=== PATIENT | female | born 1990 | race Asian ===

== ENCOUNTER → 2019-10-07 | Outpatient (CLI) | payer SELFPAY ==
--- NOTE | 2019-10-07 13:34 | US ---
EXAMINATION TYPE: US OB >= 14 wk fetus DATE OF EXAM: 10/07/2019 COMPARISON: None CLINICAL HISTORY: O36.63X0 Large for dates TECHNIQUE: Transabdominal (TA) GESTATIONAL AGE / DATING Physician Established: (35 weeks/1 days) EDC: 11/10/19 Dates by LMP: LMP unknown Dates by First Scan: (35 weeks/1 days) EDC: 11/10/19 Dates by Current Scan: (35 weeks/1 days) EDC: 11/10/19 SURVEY IUP: Single PLACENTA: Fundal PREVIA: No Previa BILLY: 13.2 cm CERVICAL LENGTH (transabdominal: norm > 3.0cm): 3.6 cm BIOMETRY PRESENTATION: vertex BPD: 8.6 cm 34 weeks / 5 days HC: 30.9 cm 34 weeks / 4 days AC: 33.0 cm 37 weeks / 0 days FL: 7.0 cm 36 weeks / 0 days ESTIMATED WEIGHT IN GRAMS: 2871 grams ESTIMATED WEIGHT IN LBS/OZ: 6 lbs. 5 oz. WEIGHT PERCENTAGE BASED ON ESTABLISHED DATES: 76% HC/AC: 0.9 FL/AC: 21.0 HEART RATE: 141 bpm RHYTHM: Normal MATERNAL WALL MEASUREMENT: 3.5 cm from skin to anterior uterine wall (if exam limited due to body hab itus). ANATOMY SEEN (within normal limits): Midline Falx Cavus Septi Pellucidi Four Chamber Heart Stomach Nose / Lips Diaphragm Bladder Other anatomy not seen due to increased size and shadowing from bone. IMPRESSION: Single viable uterine . See above.
== END | disposition home or self-care (01) ==
LOC: RADUSWWP 11:01
PROVIDERS: ATTEND Obstetrics & Gynecology
DX: O36.63X0 Maternal care for excessive fetal growth, third trimester, not applicable or unspecified (principal); Z3A.35 35 weeks gestation of pregnancy
CPT/HCPCS: 76805

== ENCOUNTER 2019-10-28 11:09 | Outpatient (CLI) | payer SELFPAY ==
[2019-10-28 13:17] VITALS: BP 138/86; PULSE 97; RESP 20; TEMP 98.2
--- NOTE | 2019-11-01 12:22 | P.MSEPDOC ---
Presenting Problems - Arrival Data Date of Arrival on Unit: 10/28/19 Time of Arrival on Unit: 11:20 Mode of Transport: Ambulatory - Complaint OB-Reason for Admission/Chief Complaint: Other Medical History - Information : 2 Para: 1 Term: 1 : 0 Abortions: Spontaneous or Elective: 0 Number of Living Children: 1 - Gestational Age Gestational Age by MAKR (wks/days): 38 Weeks and 1 Days - History Complications: Prior Comment: pt states shes going to with this Review of Systems - Review of Systems Constitutional: No problems Breast: No problems ENT: No problems Cardiovascular: No problems Respiratory: No problems Gastrointestinal: No problems Genitourinary: No problems Musculoskeletal: No problems Neurological: No problems Skin: No problems Vital Signs - Temperature Temperature: 98.2 F Temperature Source: Oral - Pulse Right Brachial Pulse Rate: 97 Pulse Assessment Method: Automatic Cuff - Respirations Respiratory Rate: 20 Oxygen Delivery Method: Room Air O2 Sat by Pulse Oximetry: 98 - Blood Pressure Right Arm Blood Pressure: 138/86 Blood Pressure Mean: 103 Blood Pressure Source: Automatic Cuff Medical Screen Scoring (Pre) - Cervical Exam Dilation: 1-3 cm = 1 Membranes: Intact - Uterine Contractions Frequency: > 5 minutes apart = 1 Duration: > 40 seconds = 2 Intensity: N/A - Maternal Vital Signs Maternal Temperature: N/A Signs of Preeclampsia: N/A Maternal Respirations: N/A - Maternal Trauma Maternal Trauma: N/A - Assessment - Baby A Baseline FHR: 130 Heart Rate - NICHD Category: Category I (Normal) = 0 NST: Reactive Position: N/A Station: N/A - Total Score - Baby A Total Score - Baby A: 4 - Total Score - Baby B Total Score - Baby B: 4 - Total Score - Baby C Total Score - Baby C: 4 - Level of Risk - Baby A Level of Risk - Baby A: Low (0-5) - Level of Risk - Baby B Level of Risk - Baby B: Low (0-5) - Level of Risk - Baby C Level of Risk - Baby C: Low (0-5) Physician Notification (Pre) - Physician Notified Physician Notified Date: 10/28/19 Physician Notified Time: 13:00 New Order Received: Yes - Notification Comment Comment: cervix rechecked after 1 hr with no change noted b/p 127/81. may discharge to home undelivered withinstructions Disposition - Disposition OB Disposition: Discharge to home Discharge Date: 10/28/19 Discharge Time: 13:05 I agree with the RN Medical Screening Exam: Yes Risk & Benefit of care provided described in d/c instruction: Yes Diagnosis: FALSE LABOR AT OR AFTER 37 COMPLETED WEEKS OF GESTATION
== END 2019-10-28 13:05 | disposition home or self-care (01) ==
LOC: FBPOP 11:09
PROVIDERS: ATTEND Obstetrics & Gynecology
DX: O47.1 False labor at or after 37 completed weeks of gestation (principal); Z3A.38 38 weeks gestation of pregnancy
CPT/HCPCS: 59025; 99213

== ENCOUNTER 2019-10-29 13:02 | Inpatient (IN) | payer OTHER ==
[2019-10-29] MEDS ORDERED: OXYTOCIN 10 UNIT/ML 1 ML VIAL IM PRN (13:24)
[2019-10-29] MEDS ORDERED: CARBOPROST TROMETHAMINE 250 MCG/ML 1 ML AMP IM PRN (13:24)
[2019-10-29] MEDS ORDERED: TERBUTALINE 1 MG/ML VIAL SQ PRN (13:24)
[2019-10-29] MEDS ORDERED: LIDOCAINE 0.5% (PF) 5 MG/ML (50 ML SDV) SQ PRN (13:24)
[2019-10-29] MEDS ORDERED: METHYLERGONOVINE 0.2 MG/ML 1 ML AMP IM PRN (13:24)
[2019-10-29] MEDS ORDERED: LACTATED RINGERS 1,000 ML IV SCH (13:30)
[2019-10-29 13:47] LABS: Basophils % (A) 0 %; Eosinophils % (A) 0 %; HCT 35.2 % (34.0-46.0); HGB 12.2 gm/dL (11.4-16.0); Lymphocytes # (A) 1.2 k/uL (1.0-4.8); Lymphocytes % (A) 6 %; MCH 30.3 pg (25.0-35.0); MCHC 34.6 g/dL (31.0-37.0); MCV 87.7 fL (80.0-100.0); Mean Platelet Volume 9.4; Monocytes # (A) 0.7 k/uL (0-1.0); Monocytes % (A) 4 %; Neutrophils # (A) 17.4 k/uL (1.3-7.7); Neutrophils % (A) 90 %; Platelet Count 238 k/uL (150-450); RBC 4.01 m/uL (3.80-5.40); RDW 12.9 % (11.5-15.5); WBC 19.4 k/uL (3.8-10.6)
[2019-10-29] MEDS ORDERED: diphenhydrAMINE 50 MG/ML 1 ML VIAL IVP PRN (14:49)
[2019-10-29] MEDS ORDERED: HYDROCORTISONE 2.5% RECTAL CREAM 30 GM TUBE RECTAL PRN (14:49)
[2019-10-29] MEDS ORDERED: SIMETHICONE 80 MG CHEWABLE PO PRN (14:49)
[2019-10-29] MEDS ORDERED: ZOLPIDEM 5 MG TAB PO PRN (14:49)
[2019-10-29] MEDS ORDERED: WITCH HAZEL 1 EACH MED..PAD TOPICAL PRN (14:49)
[2019-10-29] MEDS ORDERED: ACETAMINOPHEN TAB 325 MG TAB PO PRN (14:49)
[2019-10-29] MEDS ORDERED: LANOLIN CREAM 5 GM TUBE TOPICAL PRN (14:49)
[2019-10-29] MEDS ORDERED: IBUPROFEN 600 MG TAB PO PRN (14:49)
[2019-10-29] MEDS ORDERED: diphenhydrAMINE 25 MG CAP PO PRN (14:49)
[2019-10-29] MEDS ORDERED: BENZOCAINE/MENTHOL SPRAY 1 GM/SPRAY AEROSOL TOPICAL PRN (14:49)
[2019-10-29] MEDS ORDERED: BISACODYL 10 MG SUPP RECTAL PRN (14:49)
[2019-10-29] MEDS ORDERED: OXYTOCIN 20 UNITS/1000 ML NS 1,000 ML IV SCH (15:00)
--- NOTE | 2019-10-29 17:08 | P.HPOB ---
History of Present Illness H&P Date: 10/29/19 Chief Complaint: Contractions. Please note this H&P is dictated after patient's admission and delivery due to the rapidity of the patient's labor progress. This patient is a pleasant 29-year-old 2 para 1 female estimated date of confinement 11/10/2019 estimated gestational age 38-2/7 weeks who presented to labor and delivery with complaints of contractions. Patient's hearing yesterday with similar complaints and now returns with more painful contractions. Cervix on admission is 6 cm dilated 90% effaced. care is per Dr. Clinton. It appears by late to seek care. Her first visit was at 26 weeks. She does appear to have been compliant however since that time. Patient's had a previous section for cephalopelvic dystocia. Patient was induced and progressed to complete pushes for an hour and a half with that and then had a section. Patient has discussed this in detail with Dr. Clinton at her visits and they've elected to proceed with trial of vaginal after section (). Patient does understand the benefits and risks of this. care otherwise appears to been uncomplicated. Review of Systems Genitourinary: Reports Menstruation: Reports amenorrhea Past Medical History Past Medical History: No Reported History Additional Past Medical History / Comment(s): Patient has a history of pancreatitis and pneumomediastinum History of Any Multi-Drug Resistant Organisms: None Reported Past Surgical History: No Surgical Hx Reported Additional Past Surgical History / Comment(s): [place] teeth removed. Past Anesthesia/Blood Transfusion Reactions: No Reported Reaction Past Psychological History: No Psychological Hx Reported Smoking Status: Never smoker Past Alcohol Use History: None Reported, Rare Past Drug Use History: None Reported - Past Family History Mother Family Medical History: Asthma Medications and Allergies Home Medications Medication Instructions Recorded Confirmed Type Pnv,Calcium 72/Iron/Folic Acid 1 tab PO DAILY 01/16/16 10/29/19 History [ Plus Tablet] Allergies Allergy/AdvReac Type Severity Reaction Status Date / Time No Known Allergies Allergy Verified 10/29/19 13:07 Exam Vital Signs Temp Pulse Resp BP Pulse Ox 10/29/19 16:09 97.3 F L 111 H 16 140/82 100 10/29/19 13:20 97.3 F L 111 H 16 140/82 100 Intake and Output 10/29/19 10/29/19 10/29/19 06:59 14:59 22:59 Other: Weight 100.698 kg 100.698 kg - OBG Physical Exam Abdomen: bowel sounds normal, no diffuse tenderness, no bruit present, no guarding noted, no hepatomegaly, no splenomegaly, no mass Vulva: both: normal Vagina: normal moisture, no discharge Cervix: no lesion (On admission cervix is 6 cm dilated 90% effaced -2 station.), no discharge Uterus: enlarged (Fundal height is consistent with gestational age) Results blood work shows she is B+, rubella immune, RPR nonreactive, hepatitis B negative, HIV is nonreactive, Glucola initially was normal however repeat Glucola was abnormal and she did have a 3 hour GTT that was normal. Group B strep was negative. Result Diagrams: 10/29/19 13:30 Abnormal Lab Results - Last 24 Hours (Table) 10/29/19 Range/Units 13:30 WBC 19.4 H (3.8-10.6) k/uL Neutrophils # 17.4 H (1.3-7.7) k/uL Assessment and Plan Assessment: This is a pleasant 29-year-old 2 para 1 female 38-2/7 weeks gestation presents to labor and delivery in active labor. Patient's had previous section for cephalopelvic dystocia as requested trial of . She is discussed this previously with Dr. Clinton. I rediscussed her intentions, risks benefits. Patient wishes to proceed with vaginal delivery. (1) 38 weeks gestation of Current Visit: Yes Status: Acute Code(s): Z3A.38 - 38 WEEKS GESTATION OF SNOMED Code(s): 01306485 (2) Normal labor Current Visit: Yes Status: Acute Code(s): O80 - ENCOUNTER FOR FULL-TERM UNCOMPLICATED DELIVERY; Z37.9 - OUTCOME OF DELIVERY, UNSPECIFIED SNOMED Code(s): 44491423 (3) Previous delivery affecting Current Visit: Yes Status: Acute Code(s): O34.219 - MATERNAL CARE FOR UNSP TYPE SCAR FROM PREVIOUS DEL SNOMED Code(s): 454256643
--- NOTE | 2019-10-29 17:10 | P.PROBDLV ---
Vaginal Delivery Note - . Vaginal Delivery Note: Normal spontaneous vaginal delivery () of viable female infant Apgars are 9 and 9 delivery time is 1432 hrs. Please see dictated H&P for intimate details of this patient's admission. Brief summary this is a pleasant 29-year-old 2 para 1 female 38-2/7 weeks who presented to labor and delivery complaining of contractions. Patient 6 cm on admission and heart tones are category 1. Patient is artificial rupture membranes for clear fluid. Patient did request an epidural however quickly went to complete and then with approximately 3 pushes pushes the head to the perineum. The posterior perineum is supported and we have controlled delivery of the 's head over the intact perineum. Mouth and nares are bulb suctioned. There is no evidence of a nuchal cord. With gentle downward traction we then have deliver the anterior and posterior shoulder and rest this infant's body. This is a vigorous viable female infant Apgars 9 and 9 delivery time is 1437 hrs. After delivery of the infant the umbilical cord is allowed to quit pulsating, it is then doubly clamped and cut. It appears to be trivascular. After delivery of the infant the placenta spontaneously delivered intact. Inspection of perineum shows superficial periurethral lacerations that did not require repair. There is also a very small first-degree laceration which is repaired with a [id number] stitch of 3-0 Vicryl. All counts are correct 3. There are no complications. Estimate blood loss is about 100 mL. Infant and mother are stable delivery room.
[2019-10-29 17:56] VITALS: RESP 16
[2019-10-29] MEDS ORDERED: INFLUENZA VACCINE (6 MOS+) 60 MCG/0.5 ML SYRINGE IM ONE (20:22)
[2019-10-29] MEDS: SENNOSIDES-DOCUSATE SODIUM 1 EACH TAB PO SCH (20:30)
--- NOTE | 2019-10-30 06:31 | P.PNOBGVD ---
Subjective - Subjective Patient reports: Reports appetite normal, Reports voiding normally, Reports pain well controlled, Reports ambulating normally : doing well Objective - Latest Vital Signs Latest vital signs: Vital Signs Temp Pulse Resp BP Pulse Ox 10/29/19 23:55 98.4 F 89 16 119/66 10/29/19 20:00 98.6 F 98 16 129/67 10/29/19 16:45 97.6 F 77 16 142/69 10/29/19 16:15 97.3 F L 82 14 124/72 10/29/19 15:45 86 16 121/65 10/29/19 15:30 94 14 118/76 10/29/19 15:15 90 16 128/71 10/29/19 15:00 104 H 16 126/82 10/29/19 14:45 96.7 F L 105 H 16 120/68 10/29/19 13:20 97.3 F L 111 H 16 140/82 100 Intake and Output 10/29/19 10/29/19 10/30/19 14:59 22:59 06:59 Intake Total 1200 Balance 1200 Intake: Oral 1200 Other: # Voids 1 1 Weight 100.698 kg 100.698 kg - Exam Lungs: bilateral: normal Chest: Normal S1, Normal S2 Extremities: Present: normal Abdomen: Present: normal appearance, soft Uterus: Present: normal, firm - Labs Labs: Abnormal Lab Results - Last 24 Hours (Table) 10/29/19 Range/Units 13:30 WBC 19.4 H (3.8-10.6) k/uL Neutrophils # 17.4 H (1.3-7.7) k/uL Assessment and Plan Assessment: Hospital day #1. Patient would like to go home today. Vital signs are stable and she is afebrile. Uterus is firm nontender and she is having normal lochia. My impression is a normal course. Plan to continue routine care and discharge home later today. (1) 38 weeks gestation of Current Visit: Yes Status: Acute Code(s): Z3A.38 - 38 WEEKS GESTATION OF SNOMED Code(s): 11242553 (2) Normal labor Current Visit: Yes Status: Acute Code(s): O80 - ENCOUNTER FOR FULL-TERM UNCOMPLICATED DELIVERY; Z37.9 - OUTCOME OF DELIVERY, UNSPECIFIED SNOMED Code(s): 06296836 (3) Previous delivery affecting Current Visit: Yes Status: Acute Code(s): O34.219 - MATERNAL CARE FOR UNSP TYPE SCAR FROM PREVIOUS DEL SNOMED Code(s): 946823281
--- NOTE | 2019-10-30 06:35 | P.DS ---
Providers Date of admission: 10/29/19 13:10 Expected date of discharge: 10/30/19 Attending physician: Argentina Clinton Primary care physician: Stated None - Discharge Diagnosis(es) (1) 38 weeks gestation of Current Visit: Yes Status: Acute (2) Normal labor Current Visit: Yes Status: Acute (3) Previous delivery affecting Current Visit: Yes Status: Acute Hospital Course: Please see dictated H&P for intimate details of this patient's admission. Brief summary this pleasant 29-year-old 2 para 1 female 38-2/7 weeks gestation admitted in active labor. Patient was on have a vaginal after section of viable female . Please dictated delivery note. day #1 patient wishes to go home felt be stable for discharge home follow up with Dr. Clinton 6 weeks. Procedures: Vaginal after section Patient Condition at Discharge: Good Plan - Discharge Summary New Discharge Prescriptions: New Ibuprofen [Motrin] 600 mg PO Q6HR PRN #30 tab PRN Reason: Mild Pain Or Fever >= 100.5 No Action Pnv,Calcium 72/Iron/Folic Acid [ Plus Tablet] 1 tab PO DAILY Discharge Medication List Pnv,Calcium 72/Iron/Folic Acid [ Plus Tablet] 1 tab PO DAILY 01/16/16 [History] Ibuprofen [Motrin] 600 mg PO Q6HR PRN #30 tab 10/30/19 [Rx] Follow up Appointment(s)/Referral(s): Argentina Clinton DO [Doctor of Osteopathic Medicine] - 6 Weeks (Please call the office on Friday to schedule a check in 6 weeks.) Patient Instructions/Handouts: Vaginal Delivery (DC) Activity/Diet/Wound Care/Special Instructions: No intercourse or anything per vagina for 6 weeks. Please call if any fever, chills, excessive vaginal bleeding, and/or abdominal pain. Discharge Disposition: HOME SELF-CARE
[2019-10-30 08:03] VITALS: BP 154/79; PULSE 76; TEMP 98.2
[2019-10-30] MEDS: SENNOSIDES-DOCUSATE SODIUM 1 EACH TAB PO SCH (08:05)
--- NOTE | 2019-11-02 06:39 | P.MSEPDOC ---
Presenting Problems - Arrival Data Date of Arrival on Unit: 10/29/19 Time of Arrival on Unit: 13:15 Mode of Transport: Wheelchair - Complaint OB-Reason for Admission/Chief Complaint: Possible Onset of Labor Medical History - Information : 2 Para: 1 Term: 1 : 0 Abortions: Spontaneous or Elective: 0 Number of Living Children: 1 - Gestational Age Gestational Age by MARK (wks/days): 38 Weeks and 2 Days - History Complications: Prior Review of Systems - Review of Systems Constitutional: No problems Breast: No problems ENT: No problems Cardiovascular: No problems Respiratory: No problems Gastrointestinal: No problems Genitourinary: No problems Musculoskeletal: No problems Neurological: No problems Skin: No problems Vital Signs - Temperature Temperature: 98.2 F Temperature Source: Oral - Pulse Right Brachial Pulse Rate: 76 Pulse Assessment Method: Automatic Cuff - Respirations Respiratory Rate: 16 Oxygen Delivery Method: Room Air - Blood Pressure Right Arm Blood Pressure: 154/79 Blood Pressure Mean: 104 Blood Pressure Source: Automatic Cuff Medical Screen Scoring (Pre) - Cervical Exam Dilation: 4-7 cm = 2 Effacement: More than 50% = 2 Membranes: Intact - Uterine Contractions Frequency: > or = 36 weeks =2 Duration: > 40 seconds = 2 Intensity: Contraction palpated strong = 1 - Maternal Vital Signs Maternal Temperature: N/A Maternal Blood Pressure: N/A Signs of Preeclampsia: N/A Maternal Respirations: N/A - Maternal Trauma Maternal Trauma: N/A - Assessment - Baby A Baseline FHR: 145 Heart Rate - NICHD Category: Category I (Normal) = 0 NST: Reactive Position: N/A Station: N/A - Total Score - Baby A Total Score - Baby A: 9 - Total Score - Baby B Total Score - Baby B: 9 - Total Score - Baby C Total Score - Baby C: 9 - Level of Risk - Baby A Level of Risk - Baby A: Medium (6-9) - Level of Risk - Baby B Level of Risk - Baby B: Medium (6-9) - Level of Risk - Baby C Level of Risk - Baby C: Medium (6-9) Physician Notification (Pre) - Physician Notified Physician Notified Date: 10/29/19 Physician Notified Time: 13:20 New Order Received: Yes - Notification Comment Comment: admit for labor Disposition - Disposition OB Disposition: Admit Discharge Date: 10/30/19 Discharge Time: 15:36 I agree with the RN Medical Screening Exam: Yes Risk & Benefit of care provided described in d/c instruction: Yes Diagnosis: ENCOUNTER FOR FULL-TERM UNCOMPLICATED DELIVERY
== END 2019-10-30 15:37 | disposition home or self-care (01) | DRG 807 ==
LOC: FBPOP 13:02 → 4FBP 13:10
PROVIDERS: ADMIT Obstetrics & Gynecology; ATTEND Obstetrics & Gynecology
PROC: 10E0XZZ Delivery of Products of Conception, External Approach (ICD-10-PCS; principal; 2019-10-29)
PROC: 0HQ9XZZ Repair Perineum Skin, External Approach (ICD-10-PCS; 2019-10-29)
DX: O34.219 Maternal care for unspecified type scar from previous cesarean delivery (principal); Z37.0 Single live birth; O70.0 First degree perineal laceration during delivery; O71.82 Other specified trauma to perineum and vulva; Z3A.38 38 weeks gestation of pregnancy; Z82.5 Family history of asthma and other chronic lower respiratory diseases
CPT/HCPCS: 59025; 85025; 86850; 86900; 86901; 90686; 99213

== ENCOUNTER 2025-02-02 14:00 | Outpatient (CLI) | payer BC ==
[2025-02-02 14:34] LABS: Appearance,Urine Cloudy (Clear); Bilirubin,Urine Negative (Negative); Blood,Urine Negative (Negative); Color,Urine Light Yellow; Glucose,Urine (UA) Negative (Negative); Ketones,Urine Negative (Negative); Leukocyte Esterase,Urine Negative (Negative); Mucus,Urine Rare /hpf; Nitrite,Urine Negative (Negative); Protein,Urine Negative (Negative); RBC,Urine 1 /hpf (0-5); Specific Gravity,Urine 1.013 (1.001-1.035); Squamous Epithelial Cell,Urine 1 /hpf (0-4); Urobilinogen,Urine <2.0 mg/dL (<2.0); WBC,Urine 2 /hpf (0-5)
[2025-02-02 14:48] LABS: Creatinine,Urine Random 66.8 mg/dL; Protein/Creatinine Ratio,Urine 0.314
[2025-02-02 15:22] LABS: Uric Acid 4.9 mg/dL (3.7-7.4)
[2025-02-02 15:32] LABS: Basophils % (A) 0 %; Eosinophils # (A) 0.1 k/uL (0-0.7); Eosinophils % (A) 1 %; HCT 34.2 % (34.0-46.0); HGB 10.8 gm/dL (11.4-16.0); Hypochromasia Slight; Lymphocytes # (A) 1.8 k/uL (1.0-4.8); Lymphocytes % (A) 20 %; MCH 27.8 pg (25.0-35.0); MCHC 31.5 g/dL (31.0-37.0); MCV 88.3 fL (80.0-100.0); Mean Platelet Volume 8.9; Monocytes # (A) 0.6 k/uL (0-1.0); Monocytes % (A) 6 %; Neutrophils # (A) 6.5 k/uL (1.3-7.7); Neutrophils % (A) 70 %; Platelet Count 214 k/uL (150-450); RBC 3.87 m/uL (3.80-5.40); WBC 9.3 k/uL (3.8-10.6)
[2025-02-02 15:54] VITALS: BP 148/83; PULSE 91; RESP 16; TEMP 98.1
== END 2025-02-02 15:51 | disposition home or self-care (01) ==
LOC: FBPOP 14:00
PROVIDERS: ATTEND Obstetrics & Gynecology
DX: O13.9 Gestational [pregnancy-induced] hypertension without significant proteinuria, unspecified trimester (principal); Z3A.00 Weeks of gestation of pregnancy not specified
CPT/HCPCS: 59025; 81001; 82570; 84156; 84450; 84460; 84550; 85025

== ENCOUNTER 2025-02-18 05:26 | Inpatient (IN) | payer BC ==
[2025-02-18] MEDS ORDERED: miSOPROStoL 200 MCG TAB PO PRN ×2 (06:18→13:42)
[2025-02-18] MEDS ORDERED: TERBUTALINE 1 MG/ML VIAL SQ PRN (06:18)
[2025-02-18] MEDS ORDERED: miSOPROStoL 200 MCG TAB RECTAL PRN (06:18)
[2025-02-18] MEDS ORDERED: LIDOCAINE 0.5% (PF) 5 MG/ML (50 ML SDV) SQ PRN (06:18)
[2025-02-18] MEDS ORDERED: CARBOPROST TROMETHAMINE 250 MCG/ML 1 ML AMP IM PRN ×2 (06:18→13:42)
[2025-02-18] MEDS ORDERED: METHYLERGONOVINE 0.2 MG/ML 1 ML AMP IM PRN ×2 (06:18→13:42)
[2025-02-18] MEDS ORDERED: OXYTOCIN 10 UNIT/ML 1 ML VIAL IM PRN ×2 (06:18→13:42)
[2025-02-18] MEDS ORDERED: TRANEXAMIC 1,000 MG/100ML-NACL 1,000 MG in EMPTY BAG 1 BAG IV PRN ×2 (06:18→13:42)
[2025-02-18 06:38] LABS: Basophils % (A) 0 %; Eosinophils # (A) 0.2 k/uL (0-0.7); Eosinophils % (A) 2 %; HCT 33.7 % (34.0-46.0); HGB 10.9 gm/dL (11.4-16.0); Hypochromasia Slight; Lymphocytes % (A) 21 %; MCHC 32.5 g/dL (31.0-37.0); MCV 86.1 fL (80.0-100.0); Mean Platelet Volume 9.1; Monocytes # (A) 0.5 k/uL (0-1.0); Monocytes % (A) 6 %; Neutrophils # (A) 6.3 k/uL (1.3-7.7); Neutrophils % (A) 69 %; Platelet Count 209 k/uL (150-450); RBC 3.91 m/uL (3.80-5.40); RDW 13.8 % (11.5-15.5); WBC 9.2 k/uL (3.8-10.6)
[2025-02-18] MEDS: AMPICILLIN 2,000 MG in SODIUM CHLORIDE 0.9% 100 ML IVPB STA (06:51)
[2025-02-18] MEDS: OXYTOCIN 30 UNITS/500 ML NS 30 UNIT in SALINE 1 500ML.BAG IV SCH (07:44)
--- NOTE | 2025-02-18 08:24 | P.HPOB ---
History of Present Illness H&P Date: 02/18/25 Chief Complaint: IUP at 40-4/7 weeks, spontaneous rupture of membranes This is a 34-year-old 3 para 2-0-0-2 that presents to labor and delivery at 40-4/7 weeks with complaints of spontaneous rupture of membranes and contractions. Patient has been receiving routine care which has been essentially uncomplicated. Patient states she did have a section with her first followed by a successful vaginal delivery after . Patient desires vaginal delivery. Patient is unsure when she had rupture of membranes, states she has been leaking since yesterday afternoon. Patient does note good movement occasional contractions are appreciated. On blood work this patient is a blood type of B+, rubella status immune, hepatitis B surface engine negative, grew beta strep culture negative, HIV negative, RPR is nonreactive, hepatitis C negative. Review of Systems Constitutional: Denies chills, Denies fatigue, Denies fever Ears, nose, mouth and throat: Denies headache Cardiovascular: Reports leg edema Respiratory: Denies dyspnea Gastrointestinal: Denies nausea, Denies vomiting Genitourinary: Reports Past Medical History Past Medical History: No Reported History Additional Past Medical History / Comment(s): Patient has a history of pancreatitis and pneumomediastinum History of Any Multi-Drug Resistant Organisms: None Reported Past Surgical History: No Surgical Hx Reported, Section Additional Past Surgical History / Comment(s): [place] teeth removed. Past Anesthesia/Blood Transfusion Reactions: No Reported Reaction Past Psychological History: No Psychological Hx Reported Smoking Status: Never smoker Past Alcohol Use History: None Reported, Rare Past Drug Use History: None Reported - Past Family History Mother Family Medical History: Asthma Medications and Allergies Home Medications Medication Instructions Recorded Confirmed Type Pnv,Calcium 72/Iron/Folic Acid 1 tab PO DAILY 01/16/16 02/18/25 History [ Plus Tablet] Ibuprofen [Motrin] 600 mg PO Q6HR PRN #30 tab 10/30/19 02/18/25 Rx Allergies Allergy/AdvReac Type Severity Reaction Status Date / Time No Known Allergies Allergy Verified 02/02/25 14:06 Exam Osteopathic Statement: *. No significant issues noted on an osteopathic structural exam other than those noted in the History and Physical/Consult. Vital Signs Temp Pulse Resp BP Pulse Ox 02/18/25 06:18 97.8 F 116 H 16 138/83 100 02/18/25 05:28 97.8 F 125 H 16 138/83 99 Intake and Output 02/17/25 02/18/25 02/18/25 22:59 06:59 14:59 Other: Weight 106.594 kg Targeted physical exam is performed this date General Is well-nourished well- developed female in no acute distress, breathing is nonlabored, heart has a regular rate and rhythm, abdomen is gravid, on cervical exam she is 4/100/-3 station amniotomy is performed as a forebag is appreciated and clear fl uid was obtained. heart tones are noted be category 1 and she is carey irregularly. Results Result Diagrams: 02/18/25 06:20 Abnormal Lab Results - Last 24 Hours (Table) 02/18/25 Range/Units 06:20 Hgb 10.9 L (11.4-16.0) gm/dL Hct 33.7 L (34.0-46.0) % Assessment and Plan (1) Post-dates Current Visit: Yes Status: Acute Code(s): O48.0 - POST-TERM SNOMED Code(s): 89384776 (2) Spontaneous rupture of membranes Current Visit: Yes Status: Acute Code(s): KVP4318 - SNOMED Code(s): 672114823 (3) Normal labor Current Visit: No Status: Acute Code(s): O80 - ENCOUNTER FOR FULL-TERM UNCOMPLICATED DELIVERY; Z37.9 - OUTCOME OF DELIVERY, UNSPECIFIED SNOMED Code(s): 22235465 Plan: This is a 34-year-old 3 para 2-0-0-2 at 40-4/7 weeks that presents to labor and delivery with complaints of spontaneous rupture of membranes and contractions. Patient had a positive AmniSure in OB triage, patient is admitted. Pitocin augmentation of labor will be initiated. Patient does request epidural when appropriate. Clear liquids as tolerated.
[2025-02-18] MEDS ORDERED: SODIUM CHLORIDE 0.9% 250 ML BAG ONE (08:25)
[2025-02-18] MEDS ORDERED: ROPIVACAINE 5 MG/ML 30 ML VIAL ONE (08:25)
[2025-02-18] MEDS ORDERED: fentaNYL (PF) 50 MCG/ML 5 ML AMP ONE (08:25)
[2025-02-18] MEDS: LACTATED RINGERS 1,000 ML IV SCH ×2 (09:00→15:26)
[2025-02-18] MEDS: AMPICILLIN 1,000 MG in SODIUM CHLORIDE 0.9% 50 ML IVPB SCH (10:36)
[2025-02-18] MEDS: CITRIC ACID-SODIUM CITRATE 15 ML CUP PO ONE (13:39)
[2025-02-18] MEDS: ROPIVACAINE 225 MG, fentaNYL (PF). 450 MCG in SODIUM CHLORIDE 0.9% 171 ML EPIDURAL ONE (13:40)
[2025-02-18] MEDS ORDERED: MORPHINE SULFATE (PF) 0.3 MG/0.3 ML SYR ONE (14:01)
[2025-02-18] MEDS ORDERED: ONDANSETRON 4 MG/2 ML VIAL ONE (14:01)
[2025-02-18] MEDS ORDERED: DEXAMETHASONE SOD PHOSPHATE 4 MG/ML 1 ML VIAL ONE (14:01)
[2025-02-18] MEDS ORDERED: NALBUPHINE (ANES) 10 MG/ML - 1 ML AMP ONE (14:01)
[2025-02-18] MEDS ORDERED: PHENYLEPHRINE-0.9% NACL SYG 1,000 MCG/10 ML SYRINGE ONE (14:01)
[2025-02-18] MEDS ORDERED: NALOXONE 0.4 MG/ML 1 ML VIAL IV PRN ×2 (15:02→16:27)
[2025-02-18] MEDS ORDERED: diphenhydrAMINE 25 MG CAP PO PRN (15:02)
[2025-02-18] MEDS ORDERED: SIMETHICONE 80 MG CHEWABLE PO PRN (15:02)
[2025-02-18] MEDS ORDERED: ZOLPIDEM 5 MG TAB PO PRN (15:02)
[2025-02-18] MEDS ORDERED: diphenhydrAMINE 50 MG/ML 1 ML VIAL IVP PRN ×2 (15:02)
[2025-02-18] MEDS ORDERED: diphenhydrAMINE 50 MG CAP PO PRN (15:02)
[2025-02-18] MEDS ORDERED: METOCLOPRAMIDE 5 MG/ML 2 ML VIAL IVP PRN (15:02)
--- NOTE | 2025-02-18 15:32 | P.OP ---
Date of Procedure: 02/18/25 Preoperative Diagnosis: IUP at 40-4/7 weeks, spontaneous rupture of membranes, prolonged rupture of membranes, active labor at term, arrest of descent Postoperative Diagnosis: same Procedure(s) Performed: repeat section Anesthesia: spinal Surgeon: Golria Valentine Plumbing Designer #1: Paco Ang Estimated Blood Loss (ml): 632 IV fluids (ml): 1,100 Urine output (ml): 100 (blood tinged) Pathology: other (placenta) Condition: stable Disposition: observation Indications for Procedure: 4-year-old G3, P2 presented to labor and delivery with complaints of spontaneous rupture of membranes possibly earlier in the week. Patient states she has been leaking off and on since Friday. Patient had a positive AmniSure in OB triage. Patient was admitted to labor and delivery. Pitocin augmentation of la bor was begun. Forebag was appreciated and copious clear fluid was appreciated. Patient did request an epidural which was placed without difficulty by the anesthesia department. Patient did progressed to complete and began pushing. Patient had a strong urge to push but stalled and descent at -1. Increasing caput formation was noted. Patient states this happened with her first delivery which ended in a , exam is discussed with patient and her significant other after questions were answered they wish to proceed with section. Anesthesia was notified and into the room to see the patient. Patient was taken back to operating suite. Procedure was reviewed prior to leaving the room, risks were reviewed and questions were answered. Risks were discussed including but not limited to infection, bleeding, damage to bladder, bowel, ureteric injury Operative Findings: Viable female delivered at 1422, weight of 8 pounds 15 ounces, Apgars of 8 and 9 at 1 and 5 minutes respectively. Description of Procedure: Patient was taken back to the operating suite where spinal anesthesia was obtained without difficulty by the anesthesia department. She was prepped and draped in normal sterile fashion in the dorsal supine position. A Pfannenstiel skin incision was made with a scalpel and carried through the underlying layer of fascia. The fascia was incised in the midline and extended laterally. The superior aspect of the fascial incision was then grasped with Asya clamps, elevated and the underlying rectus muscle was dissected off sharply. The inferior aspect of the fascial incision was then grasped with Asya clamps, elevated and the underlying rectus muscle was dissected off sharply. The rectus muscles were the midline the peritoneum was identified and entered. A bladder blade was inserted into the pelvis. The bladder flap was noted to be high on the uterus and was dissected away from the operating field. Hysterotomy incision was made in the lower uterine segment with a scalpel. The incision was extended laterally the was noted to be low in the pelvis and delivered th rough the uterine incision. The umbilical cord was doubly clamped and cut and the infant was handed off to waiting RN. The placenta was delivered manually intact with a three-vessel cord being noted. The hysterotomy incision was inspected grasped with Allis clamps and closed with 0 Vicryl in a running locked fashion a second imbricating suture was performed. A small amount of bleeding was noted on the midportion of the uterine incision therefore a bawwiy-sf-erero suture was performed. Hemostasis was noted. The uterus was then returned to the abdomen. The gutters were cleared of all clots and debris. The hysterotomy incision was inspected and found to be hemostatic. The peritoneum was then loosely reapproximated and the rectus muscles were inspected. Any points of bleeding were made hemostatic with the Bovie. The fascia was then closed with 0 Vicryl in a running fashion from 1 lateral edge to the midline and the other lateral edge to the midline. The subcutaneous tissue was irrigated found to be hemostatic and closed with 3-0 Vicryl in a running fashion. The skin was closed with 4-0 Vicryl subcuticular fashion. All counts were noted be correct x 2. Patient and tolerated delivery well and are resting comfortably.
[2025-02-18] MEDS: ACETAMINOPHEN IV (For NPO) 1,000 MG in EMPTY BAG 1 BAG IVPB ONE (15:40)
[2025-02-18] MEDS ORDERED: IBUPROFEN IV 800 MG in SODIUM CHLORIDE 0.9% 250 ML IV ONE (16:00)
[2025-02-18] MEDS: IBUPROFEN IV 800 MG in SODIUM CHLORIDE 0.9% 250 ML IV ONE (21:20)
[2025-02-18] MEDS: SENNOSIDES-DOCUSATE SODIUM 1 EACH TAB PO SCH (21:20)
[2025-02-18] MEDS: ACETAMINOPHEN TAB 500 MG TAB PO SCH (23:06)
[2025-02-19] MEDS: ACETAMINOPHEN IV (For NPO) 1,000 MG in EMPTY BAG 1 BAG IVPB STA (00:41)
[2025-02-19] MEDS: ONDANSETRON 4 MG/2 ML VIAL IVP PRN (00:42)
[2025-02-19] MEDS: IBUPROFEN 800 MG TAB PO SCH (04:08)
[2025-02-19 04:32] LABS: Basophils % (A) 0 %; Eosinophils # (A) 0.1 k/uL (0-0.7); Eosinophils % (A) 1 %; HCT 30.6 % (34.0-46.0); HGB 9.6 gm/dL (11.4-16.0); Hypochromasia Slight; Lymphocytes # (A) 1.3 k/uL (1.0-4.8); Lymphocytes % (A) 7 %; MCH 27.7 pg (25.0-35.0); MCHC 31.4 g/dL (31.0-37.0); Mean Platelet Volume 9.6; Monocytes # (A) 0.9 k/uL (0-1.0); Monocytes % (A) 5 %; Neutrophils # (A) 16.5 k/uL (1.3-7.7); Neutrophils % (A) 87 %; Platelet Count 181 k/uL (150-450); RBC 3.48 m/uL (3.80-5.40)
--- NOTE | 2025-02-19 07:54 | P.PN ---
Progress Note - Text Progress Note Date: 02/19/25 Patient was seen and examined at bedside. Received intrathecal morphine 300 mcg for postop pain control as per surgeon request. Today postop day 1 , status post . Today complaining her pain levels 2-3 out of 10 in severity. Able to ambulate without any difficulty. Denied any weakness. Mild itching. Physical exam: Vitals : stable vitals, afebrile Assessment and plan: S/p , postop day 1 Continue oral pain medications as needed as per primary care. Please contact anesthesia as needed.
--- NOTE | 2025-02-19 07:58 | P.PNOBGPC ---
Subjective - Subjective Patient reports: Reports appetite normal, Reports voiding normally, Reports pain well controlled, Reports ambulating normally : doing well Objective - Vital Signs Latest vital signs: Vital Signs Temp Pulse Resp BP Pulse Ox 02/19/25 07:41 98.4 F 84 18 110/70 99 02/19/25 00:20 98.3 F 85 18 118/72 99 02/18/25 21:00 98.7 F 93 16 127/75 97 02/18/25 17:00 90 18 128/69 97 02/18/25 16:45 82 136/69 02/18/25 16:30 97.4 F L 87 18 136/69 100 02/18/25 16:27 97.4 F L 87 18 136/69 100 02/18/25 16:24 85 124/65 100 02/18/25 16:00 97.2 F L 91 18 130/74 99 02/18/25 15:45 97.2 F L 96 18 132/76 100 02/18/25 15:30 97.3 F L 101 H 18 121/74 99 02/18/25 15:15 97.9 F 101 H 18 111/55 97 02/18/25 15:00 97 18 103/55 97 Intake and Output 02/18/25 02/19/25 02/19/25 22:59 06:59 14:59 Intake Total 15.367 1600 Output Total 1082 1800 Balance -1066.633 -200 Intake: IV 1600 Invasive Line 1 600 Intake, IV Titration 15.367 Amount Oxytocin 30 Units/500 ml 15.367 Ns 30 unit In Saline 1 500ml.bag @ Per Protocol IV .Q0M [facility] Rx#:[id number] Output: Urine 300 1800 Straight 1200 Uretheral (Hernández) 600 Output, Quantitative 782 Blood Loss Other: Voiding Method Indwelling Catheter Indwelling Catheter - Exam Extremities: Present: normal Abdomen: Present: normal appearance, soft. Absent: distention, tenderness Incision: Present: normal, dry, intact Uterus: Present: normal, firm (The uterine fundus is tonic and appropriately tender around the umbilicus.) - Labs Labs: Abnormal Lab Results - Last 24 Hours (Table) 02/19/25 Range/Units 04:13 WBC 19.0 H (3.8-10.6) k/uL RBC 3.48 L (3.80-5.40) m/uL Hgb 9.6 L (11.4-16.0) gm/dL Hct 30.6 L (34.0-46.0) % Neutrophils # 16.5 H (1.3-7.7) k/uL Assessment and Plan (1) delivery delivered Current Visit: No Status: Acute Code(s): O82 - ENCOUNTER FOR DELIVERY WITHOUT INDICATION SNOMED Code(s): 260211474 Plan: Routine and postoperative care. I would anticipate discharge home tomorrow pending no complications. I have encouraged the patient ambulate in the hallways routinely.
[2025-02-19] MEDS: ACETAMINOPHEN TAB 500 MG TAB PO SCH (08:52)
[2025-02-19] MEDS ORDERED: IBUPROFEN 800 MG TAB PO SCH (16:00)
[2025-02-20 10:09] VITALS: BP 125/84; PULSE 78; RESP 18; TEMP 98.6
--- NOTE | 2025-02-20 11:41 | P.DS ---
Providers Date of admission: 02/18/25 05:58 Expected date of discharge: 02/20/25 Attending physician: Angeles De La Vega Primary care physician: Stated None - Discharge Diagnosis(es) (1) delivery delivered Current Visit: No Status: Acute Hospital Course: Patient is a 34-year-old 3 para 2-0-0-2 who presented to labor and delivery at 40-4/7 weeks with documented spontaneous rupture of membranes in labor. Her has been essentially uncomplicated. She does have a history of a section with her first delivery followed by successful vaginal after section and has requested trial of labor. On labor delivery, all signs are reassuring with a category 1 heart rate tracing. She had an epidural catheter placed for analgesia and had Pitocin augmentation. She ultimately progressed to complete and pushed for a little more than 2 hours with no descent of the head. She was ultimately taken to the operating room where she underwent repeat low-transverse section for a viable 8 pound 15 ounce baby girl with Apgars of 8 at 1 minute and 9 at 5 minutes. Her and postoperative course was unremarkable with vital signs remaining stable and her temperature was afebrile throughout. She was deemed stable for discharge on and postoperative day #2 and was discharged home to follow-up in the office in 2 weeks for an incision check in 6 weeks time routinely. Discharge instructions included calling for any significantly increased bleeding or foul-smelling lochia, significantly increased fever abdominal pain, perineal complaints, breast complaints, incisional complaints, or anything else that concerned her. She was additionally instructed to have nothing in the vagina for at least 6 weeks time to include intercourse and to abstain from any heavy lifting over the same period of time. She was lastly instructed to do no driving until off of all pain medications or 2 weeks time, whichever came first. She understood her instructions and agrees to follow-up as noted above. Discharge medications included continued vitamins as she has opted to breast-feed as well as [id number] analgesic pain medications. She was provided a prescription for oxycodone 5 mg, 1-2 p.o. every 6 hours as needed pain, #30 dispensed with no refills. Maternal blood type is B+ and rubella status is immune. Discharge hemoglobin and hematocrit were 9.6 and 30.6 respectively. Procedures: #1. Pitocin augmentation #2. Epidural analgesia #3. Repeat low-transverse section Patient Condition at Discharge: Stable Plan - Discharge Summary New Discharge Prescriptions: No Action Pnv,Calcium 72/Iron/Folic Acid [ Plus Tablet] 1 tab PO DAILY Ibuprofen [Motrin] 600 mg PO Q6HR PRN #30 tab PRN Reason: Mild Pain Or Fever >= 100.5 Discharge Medication List Pnv,Calcium 72/Iron/Folic Acid [ Plus Tablet] 1 tab PO DAILY 01/16/16 [History] Ibuprofen [Motrin] 600 mg PO Q6HR PRN #30 tab 10/30/19 [Rx] Follow up Appointment(s)/Referral(s): Angeles De La Vega DO [Doctor of Osteopathic Medicine] - 2 Weeks Discharge Disposition: HOME SELF-CARE
== END 2025-02-20 15:55 | disposition home or self-care (01) | DRG 788 ==
LOC: FBPOP 05:26 → 4FBP 05:58
PROVIDERS: ADMIT Obstetrics & Gynecology Obstetrics; ATTEND Obstetrics & Gynecology
PROC: 10907ZC Drainage of Amniotic Fluid, Therapeutic from Products of Conception, Via Natural or Artificial Opening (ICD-10-PCS; 2025-02-18)
PROC: 3E033VJ Introduction of Other Hormone into Peripheral Vein, Percutaneous Approach (ICD-10-PCS; 2025-02-18)
PROC: 10D00Z1 Extraction of Products of Conception, Low, Open Approach (ICD-10-PCS; principal; 2025-02-18 14:00)
DX: O34.211 Maternal care for low transverse scar from previous cesarean delivery (principal); O32.4XX0 Maternal care for high head at term, not applicable or unspecified; O48.0 Post-term pregnancy; O42.02 Full-term premature rupture of membranes, onset of labor within 24 hours of rupture; Z37.0 Single live birth; Z3A.40 40 weeks gestation of pregnancy
CPT/HCPCS: 85025; 86850; 86900; 86901; 88307; 99213